=== PATIENT | female | born 1985 | race Caucasian/White ===

== ENCOUNTER 2016-09-23 23:19 | Outpatient (CLI) | payer BC ==
[2016-09-24 00:04] LABS: APPEARANCE,URINE SLIGHTLY-CLOUDY; BILIRUBIN,URINE NEGATIVE (NEGATIVE); GLUCOSE, URINE 50 mg/dL (NEGATIVE); KETONES,URINE NEGATIVE (NEGATIVE); LEUKOCYTE ESTERASE,URINE NEGATIVE (NEGATIVE); NITRITE,URINE NEGATIVE (NEGATIVE); PROTEIN,URINE NEGATIVE (NEGATIVE); URINE SPECIFIC GRAVITY 1.013; UROBILINOGEN,URINE NEGATIVE mg/dL (<2.0)
[2016-09-24 00:32] LABS: URINE BARBITURATES SCREEN NEGATIVE; URINE METHADONE SCREEN NEGATIVE; URINE OPIATES LOW NEGATIVE; URINE PHENCYCLIDINE SCREEN NEGATIVE
[2016-09-24] MEDS ORDERED: HYDROXYZINE PAMOATE 50 MG CAPSULE ONE (02:09)
[2016-09-24] MEDS ORDERED: HYDROXYZINE PAMOATE 50 MG CAPSULE PO ONE (02:15)
--- NOTE | 2016-09-24 02:19 | Non Stress Test Report ---
Non Stress Test Datetime Report Generated by CPN: 09/24/2016 02:18 DEMOGRAPHIC EGA NST: 39.0 INDICATION Indication for Study: Other Indication for Study (NST) Other: labor check URINE RESULTS Urine Protein, NST: Negative Urine Ketones - NST: Negative Urine Glucose - NST: Negative Urine Blood - NST: Negative MONITORING Monitor Explained: Monitor Explained; Test Explained; Patient Verbalized Understanding Time on Monitor: 09/23/2016 23:41 Time off Monitor: 09/24/2016 00:43 NST Duration: 62 NST INTERVENTIONS NST Interventions: PO Hydration; Other NST Interventions Other: popsicle Physician Notified NST: Dr. rose BABY A: [id number] BABY A Movement : Present Contraction Frequency : 2.5-5 FHR Baseline : 135 Accelerations : 15X15 Decelerations : None Variability : Moderate 6-25bpm NST Review: Meets Criteria for Reactive NST NST Review and Verified By : Kimberli Mulligan RN NST Results: Reactive NST REPORT Report Trigger: Send Report
== END 2016-09-24 02:12 | disposition home or self-care (01) ==
LOC: LC 23:19
PROVIDERS: ATTEND Obstetrics & Gynecology
PROC: 4A0HXCZ Measurement of Products of Conception, Cardiac Rate, External Approach (ICD-10-PCS; principal; 2016-09-24)
DX: Z34.83 Encounter for supervision of other normal pregnancy, third trimester (principal); Z3A.39 39 weeks gestation of pregnancy
CPT/HCPCS: 59025; 80307; 81005

== ENCOUNTER 2016-09-29 07:17 | Inpatient (IN) | payer BC, OTHER ==
[2016-09-29] MEDS ORDERED: RINGERS SOLUTION,LACTATED 300 ML IV ONE (07:34)
[2016-09-29] MEDS ORDERED: RINGERS SOLUTION,LACTATED 1,000 ML IV PRN (07:34)
[2016-09-29] MEDS ORDERED: OXYTOCIN/NORMAL SALINE 1,000 ML IV PRN (07:34)
[2016-09-29 08:07] LABS: ABSOLUTE EOSINOPHILS # (AUTO) 0.1 10^3/uL (0.0-0.6); ABSOLUTE LYMPHOCYTES (AUTO) 1.3 10^3/uL (0.5-4.7); ABSOLUTE MONOCYTES (AUTO) 0.5 10^3/uL (0.1-1.4); ABSOLUTE NEUT (AUTO) 5.9 10^3/uL (1.7-8.2); BASOPHILS % (AUTO) 0.4 % (0-2); EOSINOPHILS % (AUTO) 1.3 % (0-6); HEMATOCRIT 35.1 % (36.0-47.0); HGB HCT DIFFERENCE 0.9; MEAN CORPUSCULAR HEMOGLOBIN 29.2 pg (27.0-33.4); MEAN CORPUSCULAR HGB CONC 34.1 g/dL (32.0-36.0); MEAN CORPUSCULAR VOLUME 86 fl (80-97); MONOCYTES % (AUTO) 6.5 % (3-13); RED CELL DISTRIBUTION WIDTH 13.3 % (11.5-14.0); SEGMENTED NEUTROPHILS % (AUTO) 74.8 % (42-78); WHITE BLOOD COUNT 7.8 10^3/uL (4.0-10.5)
[2016-09-29 08:16] LABS: ALANINE AMINOTRANSFERASE 24 U/L (9-52); ALBUMIN 3.6 g/dL (3.5-5.0); ALKALINE PHOSPHATASE 121 U/L (38-126); ANION GAP 12 (5-19); ASPARTATE AMINO TRANSFERASE 14 U/L (14-36); BILIRUBIN,DIRECT 0.3 mg/dL (0.0-0.4); BILIRUBIN,TOTAL 0.5 mg/dL (0.2-1.3); BLOOD UREA NITROGEN 8 mg/dL (7-20); CALCIUM 9.2 mg/dL (8.4-10.2); CARBON DIOXIDE 20 mmol/L (22-30); CHLORIDE 104 mmol/L (98-107); CREATININE RESULT 0.56 mg/dL (0.52-1.25); GLUCOSE 97 mg/dL (75-110); LDH 479 U/L (313-618); POTASSIUM 4.2 mmol/L (3.6-5.0); SODIUM 136.4 mmol/L (137-145); TOTAL PROTEIN 6.6 g/dL (6.3-8.2)
[2016-09-29] MEDS ORDERED: MISOPROSTOL 0.2 MG TABLET ONE ×2 (08:18→08:19)
[2016-09-29] MEDS ORDERED: OXYTOCIN/NORMAL SALINE 20 UNIT/1,000 ML RTUINJ ONE ×2 (08:18→16:22)
[2016-09-29] MEDS ORDERED: METHYLERGONOVINE MALEATE INJ/PF 0.2 MG/1 ML AMPULE ONE (08:18)
[2016-09-29] MEDS ORDERED: OXYTOCIN 10 UNIT/ML VIAL ONE (08:18)
[2016-09-29] MEDS ORDERED: LIDOCAINE 1% INJ-PF (10 MG/ML) 30 ML SDV ONE (08:18)
[2016-09-29 09:25] LABS: APPEARANCE,URINE SLIGHTLY-CLOUDY; BILIRUBIN,URINE NEGATIVE (NEGATIVE); GLUCOSE, URINE 50 mg/dL (NEGATIVE); KETONES,URINE NEGATIVE (NEGATIVE); LEUKOCYTE ESTERASE,URINE NEGATIVE (NEGATIVE); NITRITE,URINE NEGATIVE (NEGATIVE); PROTEIN,URINE NEGATIVE (NEGATIVE); URINE SPECIFIC GRAVITY 1.005; UROBILINOGEN,URINE NEGATIVE mg/dL (<2.0)
[2016-09-29 09:44] LABS: URINE BARBITURATES SCREEN NEGATIVE; URINE METHADONE SCREEN NEGATIVE; URINE OPIATES LOW NEGATIVE; URINE PHENCYCLIDINE SCREEN NEGATIVE
--- NOTE | 2016-09-29 15:01 | L&D Progress Notes ---
PROGRESS NOTES Datetime Report Generated by CPN: 09/29/2016 15:01 PROGRESS NOTE Impression: Normal Progression of Labor Procedures: Artificial ROM; Sterile Vag Exam Plan: Continue Present Management; Induction Informed Consent Obtained: Vaginal Delivery Vital Signs : Reviewed; Within Normal Limits Comment: Pt coping well with ctx Continue pitocin AROM, clear Anticipate pain mgmt prn VAGINAL EXAM Dilatation: 5 Dilatation: 1 Effacement: 80 Station: -2 Station: -4 Contractions: every 2 min Contractions: rare MEMBRANES Membranes: Ruptured Membranes: Intact Amniotic Fluid Color: Clear FETUS A FHR - Baseline: 145 Monitoring: External US Variability: Moderate 6-25bpm Accelerations: 15X15 Decelerations: None FHR Category: Category I Estimated Weight (gm): 3800 Presentation: Vertex SIGNATURE SIGNATURE: [id number];[id number] SIGNATURE: [id number] Assignment: Barbara Car MD Signature: with User ID: [email or web address] : with User ID: [email or web address]
[2016-09-29] MEDS ORDERED: DIPH/PERTUSS(ACELL)/TETANUS VAC/PF 0.5 ML SYR (>=10YO) IM PRN (17:43)
[2016-09-29] MEDS ORDERED: ACETAMINOPHEN WITH CODEINE #3 TABLET PO PRN ×2 (17:43)
[2016-09-29] MEDS ORDERED: MEASLES,MUMPS&RUBELLA VACC/PF 0.5 ML VIAL SUBCUT PRN (17:43)
[2016-09-29] MEDS ORDERED: ZOLPIDEM TARTRATE 5 MG TABLET PO PRN (17:43)
[2016-09-29] MEDS ORDERED: DIBUCAINE 1% OINTMENT 28 GM TP PRN (17:43)
[2016-09-29] MEDS ORDERED: BENZOCAINE/MENTHOL AEROSOL SPRAY 56 ML TOP PRN (17:43)
--- NOTE | 2016-09-29 18:33 | Admission Physical ---
Datetime Report Generated by CPN: 09/29/2016 18:32 CURRENT ADMISSION Chief Complaint: Scheduled Induction of Labor Indication for Induction: Gestational HTN Admit Plan: Admit to Unit; Initiate Labor Protocol ALLERGIES Medication Allergies: No Medication Allergies: No Known Drug Allergies (09/29/2016) Medication Allergies: No Known Drug Allergies (12/07/2014) Latex: No Latex Allergies Food Allergies: NONE Environmental Allergies: NONE OBSTETRICAL HISTORY EDC: 09/30/2016 00:00 : 8 Para: 7 Term: 7 : 0 SAB: 0 IAB: 0 Ectopic: 0 Livin Cesareans: 0 VBACs: 0 Multiple Births: 0 Gestational Diabetes: No Rh Sensitization: No Incompetent Cervix: No NINA: No Infertility: No ART Treatment: No Uterine Anomaly: No IUGR: No Hx Previous C/S: No Macrosomia: No Hx Loss/Stillborn: No PIH: Yes Hx : No Placenta Previa/Abruption: No Depression/PP Depression: No PTL/PROM: No Post Hemorrhage: No Current Procedures: Ultrasound; NST Obstetrical History Comments: G1: 2005 39.6 weeks female 8 lbs 2 oz G2: 2006 40.1 weeks male 8 lbs 9 oz G3: 2007 39 weeks female 8 lbs 1 oz G4: 2009 41 weeks 8 lbs 1 oz G5: 2010 40.5 weeks male 8 lbs 5 oz G6: 2012 39.2 weeks female 7 lbs 5 oz- precip home delivery G7: 2014 41.2 weeks 8 lbs 0 oz male 8 lbs 0 oz G8: 2016 current ; GHTN- IOL SEE RECORDS Alcohol: No Marijuana : No Cocaine: No Other Illicit Drugs: No Cigarettes: Never Smoker. [id number] MEDICAL HISTORY Diabetes: No Blood Transfusion: No Pulmonary Disease (Asthma, TB): No Breast Disease: No Hypertension: No Water Valve Repairer Surgery: No Heart Disease: No Hosp/Surgery: Yes Autoimmune Disorder: No Anesthetic Complications: No Kidney Disease: No Abnormal Pap Smear: No Neuro/Epilepsy: No Psychiatric Disorders: No Other Medical Diseases: No Hepatitis/Liver Disease: No Significant Family History: No Varicosities/Phlebitis: No Trauma/Violence : No Thyroid Dysfunction: No Medical History Comments: CHILDBIRTH, [place] [facility]- 2009; RENAL URETER REVISION @ 9 MO OLD obesity INFECTIOUS HISTORY Gonorrhea: No Genital Herpes: No Chlamydia: No Tuberculosis: No Syphilis: No Hepatitis: No HIV/AIDS Exposure: No Rash or Viral Illness: No HPV: No PHYSICAL EXAM General: Normal HEENT: Normal Neurologic: Normal Thyroid: Deferred Heart: Normal Lungs: Normal Breast: Normal Back: Normal Abdomen: Normal Genitourinary Exam: Normal Extremities: Normal DTRs: Normal Pelvic Type: Adequate Physical Exam Comments: pelvis proven to 8lbs 9oz Vital Signs: Reviewed VAGINAL EXAM Dilatation: 5 Dilatation: 1 Effacement: 80 Station: -2 Station: -4 Contraction Comments: every 2 min Contraction Comments: rare MEMBRANES Membranes: Ruptured Membranes: Intact Amniotic Fluid Color: Clear FETUS A EGA: 39.6 Monitoring: External US FHR- Baseline: 145 Variability: Moderate 6-25bpm Accelerations: 15X15 Decelerations: None FHR Category: Category I Estimated Weight (gm): 3800 Presentation: Vertex Admit Comment: Induction of labor for gestational htn and hx of precipitious delivery [place], hemmorhage precatuions GBS negative See record for complete hx. Pitocin per protocol. PLANS FOR LABOR AND DELIVERY Labor and Delivery: None Other Pain Management Plans: UNSURE IF SHE WANTS ANYTHING- WILL NOTIFY RN Feeding Preference: Breast Benefit of Breast Feed Discussed: Yes Circumcision: N/A INFORMED CONSENT Informed Consent Obtained: Vaginal Delivery Assignment: Barbara Car MD Signature: with User ID: [email or web address] : with User ID: [email or web address]
[2016-09-29] MEDS: FERROUS SULFATE 325 MG TABLET PO SCH (20:01)
[2016-09-29] MEDS: DOCUSATE SODIUM 100 MG CAPSULE PO SCH (20:01)
[2016-09-29] MEDS: IBUPROFEN 800 MG TABLET PO SCH (21:15)
[2016-09-30] MEDS: IBUPROFEN 800 MG TABLET PO SCH ×3 (05:43→22:07)
[2016-09-30 06:41] LABS: HEMATOCRIT 30.4 % (36.0-47.0); HEMOGLOBIN 10.5 g/dL (12.0-15.5); HGB HCT DIFFERENCE 1.1; MEAN CORPUSCULAR HEMOGLOBIN 29.6 pg (27.0-33.4); MEAN CORPUSCULAR HGB CONC 34.3 g/dL (32.0-36.0); MEAN CORPUSCULAR VOLUME 86 fl (80-97); RED BLOOD COUNT 3.53 10^6/uL (3.72-5.28); RED CELL DISTRIBUTION WIDTH 13.3 % (11.5-14.0); WHITE BLOOD COUNT 8.3 10^3/uL (4.0-10.5)
[2016-09-30] MEDS: PRENATAL VITAMIN W-O CA NO5/FE FUMARATE/FA CAPSULE PO SCH (09:32)
[2016-09-30] MEDS: FERROUS SULFATE 325 MG TABLET PO SCH ×2 (09:33→17:08)
[2016-09-30] MEDS: SENNOSIDES/DOCUSATE 8.6-50 MG 1 EACH TABLET PO SCH (09:33)
--- NOTE | 2016-09-30 09:34 | PDOC PROGRESS REPORT ---
Subjective-OB Subjective: Post Delivery Day: 1 31 year old. Denies any needs at this time, states pain is well controlled, voiding without difficulty, lochia is stable, tolerating diet, bonding well with baby. Physical Exam (OB) Vital Signs: Temp Pulse Resp BP Pulse Ox 98.3 F 104 H 20 145/85 H 96 09/29/16 19:59 09/29/16 19:59 09/29/16 19:59 09/29/16 19:59 09/29/16 19:59 Intake & Output 09/29/16 09/30/16 10/01/16 06:59 06:59 06:59 Weight 125.85 kg - Lochia Lochia Amount: Small 10-25 ml Lochia Color: Rubra/Red - Abdomen Description: Soft, Round Hernia Present: No Fundal Description: Firm, Boggy Fundal Height: u/u - u/2 Objective-Diagnostic Laboratory: 09/30/16 06:13 09/29/16 07:48 09/30/16 06:13 WBC 8.3 RBC 3.53 L Hgb 10.5 L Hct 30.4 L MCV 86 MCH 29.6 MCHC 34.3 RDW 13.3 Plt Count 247 Assessment and Plan(PN) - Assessment and Plan (1) Delivery normal Is this a current diagnosis for this admission?: YesPlan: routine pp care - Time Spent with Patient Time with patient: Less than 15 minutes Critical Time spent with patient: Less than 15 minutes Medications reviewed and adjusted accordingly: Yes - Disposition Anticipated Discharge: Home Within: within 24 hours
[2016-09-30] MEDS: DOCUSATE SODIUM 100 MG CAPSULE PO SCH ×2 (09:48→17:08)
[2016-10-01] MEDS: IBUPROFEN 800 MG TABLET PO SCH (05:16)
[2016-10-01 08:40] VITALS: BP 123/79
[2016-10-01] MEDS: SENNOSIDES/DOCUSATE 8.6-50 MG 1 EACH TABLET PO SCH (09:29)
[2016-10-01] MEDS: PRENATAL VITAMIN W-O CA NO5/FE FUMARATE/FA CAPSULE PO SCH (09:29)
[2016-10-01] MEDS: FERROUS SULFATE 325 MG TABLET PO SCH (09:29)
[2016-10-01] MEDS: DOCUSATE SODIUM 100 MG CAPSULE PO SCH (09:29)
--- NOTE | 2016-10-01 09:43 | PDOC DISCHARGE SUMMARY ---
Final Diagnosis Discharge Date: 10/01/16 - Final Diagnosis (1) Delivery normal Is this a current diagnosis for this admission?: Yes (2) Acute blood loss anemia Is this a current diagnosis for this admission?: Yes (3) Gestational [-induced] hypertension without significant proteinuria , third trimester Is this a current diagnosis for this admission?: Yes Discharge Data - Discharge Medication Home Medications: Pnv with Ca,No.72/Iron/FA [Pnv Plus Multivit Tab] 1 tab PO DAILY Docusate Sodium [Colace 100 mg Capsule] 100 mg PO BID #60 capsule 10/01/16 Ferrous Sulfate [Feosol 325 mg Tablet] 325 mg PO BID #60 tablet 10/01/16 Ibuprofen [Motrin 800 mg Tablet] 800 mg PO Q8 #60 tablet 10/01/16 Gestational Age: 39+ Reason(s) for Admission: Induction of Labor Intrapartum Procedure(s): Spontaneous Vaginal Delivery - Data Baby 1 Female at 1 minute: 9 at 5 minutes: 9 Home with Mother: Yes Complications: No - Diagnosis Test Laboratory: Temp Pulse Resp BP Pulse Ox 97.6 F 88 16 123/79 100 10/01/16 08:45 10/01/16 08:45 10/01/16 08:45 10/01/16 07:56 10/01/16 08:45 09/29/16 09/29/16 09/30/16 07:30 07:48 06:13 RBC 4.10 3.53 L Hgb 12.0 10.5 L Hct 35.1 L 30.4 L Urine Opiates Screen NEGATIVE - Discharge information/Instructions Discharge Activity: Activity As Tolerated, Pelvic Rest, No tub bath Discharge Diet: Regular Disposition: HOME, SELF-CARE Follow up with: [facility] in: 1, Weeks
--- NOTE | 2016-10-02 18:18 | Delivery Summary ---
Del Sum A-C Datetime Report Generated by CPN: 10/02/2016 18:18 DELIVERY PERSONNEL DELIVERY PERSONNEL: [id number];[id number];[id number] Delivery Doctor:: Luzma Mitchell CNM Labor and Delivery Nurse:: Thania Palacio RN Labor and Delivery Nurse:: Char Adamson RN Copy Lathe Operator/CHIMNEY REPAIRER: Ella Rosanna, DOPE WEIGH OPERATOR MATERNAL INFORMATION Delivery Anesthesia: None Medications After Delivery: Pitocin Bolus-Please Comment; Pitocin Drip 20 Units/1000ml NSS Estimated Blood Loss (ml): 200 Maternal Complications: None Provider Comments: of viable female over intact perineum, head, shoulders, and body, loose nuchal X1, easily reduced. Infant with spontaneous cry and respirations, to maternal abdomen, cord clamped X2 and infant cut free by pt, after 2 min delay. Spontaneous delivery of intact placenta via campos mechanism, appears intact, 3 VC. Vagina and perineum inspected, no lacerations noted, hemostasis acheived with external fundal massage and IV pitocin. Mother and infant in stable condition, routine pp care. LABOR SUMMARY EDC: 09/30/2016 00:00 No. Babies in Womb: 1 Attempted: No Labor Anesthesia: None LABOR INFORMATION Reason for Induction: Gestational Hypertension Onset of Labor: 09/29/2016 15:00 Complete Dilatation: 09/29/2016 15:50 Oxytocin: Induction Group B Beta Strep: negative Antibiotics # of Doses: 0 Steroids Given: None Reason Steroids Not Administered: Not Applicable MEMBRANES Membranes Rupture Method: Artificial Rupture of Membranes: 09/29/2016 15:00 Length of Rupture (hr): 0.88 Amniotic Fluid Color: Clear Amniotic Fluid Amount: Large Amniotic Fluid Odor: None STAGES OF LABOR Stage 1 hr: 0 Stage 1 min: 50 Stage 2 hr: 0 Stage 2 min: 3 Stage 3 hr: 0 Stage 3 min: 3 Total Time in Labor hr: 0 Total Time in Labor min: 56 VAGINAL DELIVERY Episiotomy: None Laceration Extension: N/A Laceration Type: None Laceration Repair: Not Applicable Laceration Repair Note: n/a Sponge Count Correct: N/A Sharps Count Correct: N/A CSECTION DELIVERY CSection Incision: N/A BABY A INFORMATION Delivery Date/Time: 09/29/2016 15:53 Method of Delivery: Vaginal Born in Route : No : N/A Forceps: N/A Vacuum Extraction: N/A Shoulder Dystocia : No PRESENTATION/POSITION BABY A Presentation: Cephalic Cephalic Presentation: Vertex Vertex Position: Left Occipital Anterior Breech Presentation: N/A PLACENTA INFORMATION BABY A Placenta Delivery Time : 09/29/2016 15:56 Placenta Method of Delivery: Spontaneous Placenta Status: Delivered SCORES BABY A Heart Rate 1 min: >100 bpm Resp Effort 1 min: Good Cry Reflex Irritability 1 min: Cough or Sneeze or Pulls Away Muscle Tone 1 min: Active Motion Color 1 min: Body [place], Extremities Blue Resuscitation Effort 1 min: Tactile Stimulation SCORE 1 MIN: 9 Heart Rate 5 min: >100 bpm Resp Effort 5 min: Good Cry Reflex Irritability 5 min: Cough or Sneeze or Pulls Away Muscle Tone 5 min: Active Motion Color 5 min: Body [place], Extremities Blue Resuscitation Effort 5 min: Tactile Stimulation SCORE 5 MIN: 9 INFANT INFORMATION BABY A Gestational Age at Delivery: 39.6 Gestational Status: Full Term- 39- 40.6 Weeks Outcome : Liveborn Infant Condition : Stable Infant Sex: Female IDENTIFICATION BABY A Infant Verification Date/Time: 09/29/2016 17:09 ID Band Number: [id number] Mother's Name Verified: Yes RN Verifying Infant: BL ROULUND, RN Additional Verifying Personnel: D KINDRA, US/CHIMNEY REPAIRER WEIGHT/LENGTH BABY A Birthweight (gm): 3612 Infant Weight (lb): 7 Infant Weight (oz): 15 Length (in): 19.75 Length (cm): 50.17 CORD INFORMATION BABY A No. Cord Vessels: 3 Nuchal Cord : Around Neck x1, Loose Cord Blood Taken: Yes-For Storage (Mom's Blood type +) Suction: None ASSESSMENT BABY A Complications: None Physical Findings at Delivery: Within Normal Limits Infant Respirations: Appears Normal Skin to Skin: Yes Skin to Skin Time (min): 60 Engineering Librarian/ALS Called : No Care By: Ofe ADAMSON RN Transferred To: Remains with Mother BABY B INFORMATION : N/A SIGNATURES Assignment: Barbara Car MD Signature: with User ID: [email or web address] : with User ID: [email or web address]
== END 2016-10-01 11:56 | disposition home or self-care (01) | DRG 775 ==
LOC: LR 07:17 → 2S 18:15
PROVIDERS: ADMIT Obstetrics & Gynecology; ATTEND Obstetrics & Gynecology
PROC: 10E0XZZ Delivery of Products of Conception, External Approach (ICD-10-PCS; principal; 2016-09-29)
PROC: 3E033VJ Introduction of Other Hormone into Peripheral Vein, Percutaneous Approach (ICD-10-PCS; 2016-09-29)
PROC: 4A1HXCZ Monitoring of Products of Conception, Cardiac Rate, External Approach (ICD-10-PCS; 2016-09-29)
DX: O13.4 Gestational [pregnancy-induced] hypertension without significant proteinuria, complicating childbirth (principal); D62 Acute posthemorrhagic anemia; O99.02 Anemia complicating childbirth; O69.81X0 Labor and delivery complicated by cord around neck, without compression, not applicable or unspecified; Z3A.39 39 weeks gestation of pregnancy; Z37.0 Single live birth
CPT/HCPCS: 36415; 80053; 80307; 81005; 83615; 84550; 85025; 85027; 86592; 86850; 86900; 86901; J2210; J2590; J3490

== ENCOUNTER 2018-03-13 14:51 | Outpatient (CLI) | payer BC | END 2018-03-13 15:30 | disposition home or self-care (01) | LOC: LC 14:51 | PROVIDERS: ATTEND Student in an Organized Health Care Education/Training Program | PROC: 4A1HXCZ Monitoring of Products of Conception, Cardiac Rate, External Approach (ICD-10-PCS; principal; 2018-03-13) | DX: O24.419 Gestational diabetes mellitus in pregnancy, unspecified control (principal); Z3A.38 38 weeks gestation of pregnancy | CPT/HCPCS: 59025 ==

== ENCOUNTER 2018-03-21 06:40 | Inpatient (IN) | payer BC ==
[2018-03-21] MEDS ORDERED: OXYTOCIN/NORMAL SALINE 20 UNIT/1,000 ML RTUINJ IV PRN ×2 (06:51→13:35)
[2018-03-21] MEDS ORDERED: RINGERS SOLUTION,LACTATED 300 ML IV ONE (06:51)
[2018-03-21] MEDS ORDERED: RINGERS SOLUTION,LACTATED 1,000 ML IV PRN (06:51)
[2018-03-21 07:29] LABS: ABSOLUTE LYMPHOCYTES (AUTO) 1.1 10^3/uL (0.5-4.7); ABSOLUTE MONOCYTES (AUTO) 0.5 10^3/uL (0.1-1.4); ABSOLUTE NEUT (AUTO) 5.3 10^3/uL (1.7-8.2); BASOPHILS % (AUTO) 0.6 % (0-2); EOSINOPHILS % (AUTO) 0.6 % (0-6); HEMATOCRIT 33.4 % (36.0-47.0); HEMOGLOBIN 11.7 g/dL (12.0-15.5); LYMPHOCYTES % (AUTO) 16.2 % (13-45); MEAN CORPUSCULAR HEMOGLOBIN 29.2 pg (27.0-33.4); MEAN CORPUSCULAR HGB CONC 35.1 g/dL (32.0-36.0); MEAN CORPUSCULAR VOLUME 83 fl (80-97); MONOCYTES % (AUTO) 6.7 % (3-13); PLATELET COUNT 282 10^3/uL (150-450); RED BLOOD COUNT 4.02 10^6/uL (3.72-5.28); RED CELL DISTRIBUTION WIDTH 13.3 % (11.5-14.0); SEGMENTED NEUTROPHILS % (AUTO) 75.9 % (42-78); TOTAL CELLS COUNTED % (AUTO) 100 %
--- NOTE | 2018-03-21 07:29 | Admission Physical ---
Datetime Report Generated by CPN: 03/21/2018 07:29 CURRENT ADMISSION Chief Complaint: Scheduled Induction of Labor Indication for Induction- Other: h/o fast labor Admit Impression : Term, Intrauterine Admit Plan: Admit to Unit; Initiate Labor Induction Protocol ALLERGIES Medication Allergies: No Medication Allergies: No Known Drug Allergies (03/21/2018) Latex: No Latex Allergies OBSTETRICAL HISTORY EDC: 03/22/2018 00:00 : 9 Para: 8 Term: 8 : 0 SAB: 0 IAB: 0 Ectopic: 0 Livin Cesareans: 0 VBACs: 0 Multiple Births: 0 Gestational Diabetes: Yes Rh Sensitization: No Incompetent Cervix: No NINA: No Infertility: No ART Treatment: No Uterine Anomaly: No IUGR: No Hx Previous C/S: No Macrosomia: No Hx Loss/Stillborn: No PIH: No Hx : No Placenta Previa/Abruption: No Depression/PP Depression: No PTL/PROM: No Post Hemorrhage: No Current Procedures: Ultrasound; NST Obstetrical History Comments: G1 NVD G2 NVD G3 NVD G4 NVD G5 NVD G6 NVD G7 Vaginal delivery in toilet at home G8 NVD G9- current GDM on metformin SEE RECORDS Alcohol: No Marijuana : No Cocaine: No Other Illicit Drugs: No Cigarettes: Never Smoker. [id number] MEDICAL HISTORY Diabetes: Yes Diabetes Type: Gestational Diabetes Blood Transfusion: No Pulmonary Disease (Asthma, TB): No Breast Disease: No Hypertension: No Medical Intern Surgery: No Heart Disease: No Hosp/Surgery: Yes Autoimmune Disorder: No Anesthetic Complications: No Kidney Disease: No Abnormal Pap Smear: No Neuro/Epilepsy: No Psychiatric Disorders: No Other Medical Diseases: No Hepatitis/Liver Disease: No Significant Family History: No Varicosities/Phlebitis: No Trauma/Violence : No Thyroid Dysfunction: No Medical History Comments: Hospitalization with childbirth. [place] 2009 INFECTIOUS HISTORY Gonorrhea: No Genital Herpes: No Chlamydia: No Tuberculosis: No Syphilis: No Hepatitis: No HIV/AIDS Exposure: No Rash or Viral Illness: No HPV: No PHYSICAL EXAM General: Normal HEENT: Normal Neurologic: Normal Thyroid: Normal Heart: Normal Lungs: Normal Breast: Normal Back: Normal Abdomen: Normal Genitourinary Exam: Normal Extremities: Normal DTRs: Normal Pelvic Type: Adequate Vital Signs: Reviewed; Within Normal Limits VAGINAL EXAM Contraction Comments: none MEMBRANES Membranes: Intact FETUS A EGA: 39.6 Monitoring: External US FHR- Baseline: 120s Accelerations: 15X15 Decelerations: None FHR Category: Category I Admit Comment: h/o fast labor PLANS FOR LABOR AND DELIVERY Labor and Delivery: None Pain Management: Natural Feeding Preference: Breast Benefit of Breast Feed Discussed: Yes Circumcision: N/A INFORMED CONSENT Signature: with User ID: [email or web address]
[2018-03-21 07:41] LABS: APPEARANCE,URINE CLOUDY; BILIRUBIN,URINE NEGATIVE (NEGATIVE); GLUCOSE, URINE NEGATIVE (NEGATIVE); KETONES,URINE NEGATIVE (NEGATIVE); LEUKOCYTE ESTERASE,URINE TRACE (NEGATIVE); NITRITE,URINE NEGATIVE (NEGATIVE); PROTEIN,URINE NEGATIVE (NEGATIVE); URINE SPECIFIC GRAVITY 1.012; UROBILINOGEN,URINE NEGATIVE mg/dL (<2.0)
[2018-03-21 07:45] LABS: COLOR,URINE YELLOW
[2018-03-21 07:58] LABS: URINE AMPHETAMINES SCREEN NEGATIVE; URINE BARBITURATES SCREEN NEGATIVE; URINE BENZODIAZEPINES SCREEN NEGATIVE; URINE COCAINE SCREEN NEGATIVE; URINE MARIJUANA (THC) SCREEN NEGATIVE; URINE METHADONE SCREEN NEGATIVE; URINE PHENCYCLIDINE SCREEN NEGATIVE
[2018-03-21] MEDS ORDERED: LIDOCAINE 1% INJ-PF (10 MG/ML) 30 ML SDV ONE (08:08)
[2018-03-21] MEDS ORDERED: OXYTOCIN/NORMAL SALINE 20 UNIT/1,000 ML RTUINJ ONE (08:08)
[2018-03-21] MEDS ORDERED: MISOPROSTOL 0.2 MG TABLET ONE (08:08)
--- NOTE | 2018-03-21 10:40 | Warning Signs in Babies ---
VOD Warning Signs Datetime Report Generated by [facility]: 03/21/2018 10:40 VOD#608 -Warning Signs in Babies: Viewed with Parent(s)/Family (03/13/2018 15:12:Glenda Monaco)
[2018-03-21] MEDS ORDERED: NALBUPHINE HCL INJ 10 MG/1 ML AMPULE ONE (11:48)
[2018-03-21] MEDS ORDERED: EPHEDRINE SULFATE INJ 50 MG/1 ML AMPULE ONE (12:27)
[2018-03-21] MEDS ORDERED: FENTANYL/BUPIVACAINE/NS/PF 300 MCG/150 ML RTUINJ EPI ONE (12:28)
[2018-03-21] MEDS ORDERED: BUPIVACAINE HCL 0.5 % INJ/PF 30 ML SDV ONE (12:29)
[2018-03-21] MEDS ORDERED: NALBUPHINE HCL INJ 10 MG/1 ML AMPULE INJ ONE (12:30)
--- NOTE | 2018-03-21 12:31 | L&D Progress Notes ---
PROGRESS NOTES Datetime Report Generated by CPN: 03/21/2018 12:31 PROGRESS NOTE Impression Other: IUP @ [id number] Procedures: Artificial ROM; Sterile Vag Exam Plan: Continue Present Management; Induction Informed Consent Obtained: Vaginal Delivery; Induction of Labor; Risks, Benefits and Alternatives Discussed Vital Signs : Reviewed; Within Normal Limits Vital Signs Comments: some mild range diastolic bps otherwise normal Comment: S: comfortable after nubain but still desires epidural for pain relief O: cervix as stated, vss, pit @ 20mu/min A: IUP@ 39w6d IOL, AROM-large amount of clear fluid with good head descent after AROM, tolerated well P: continue IOL, fluid bolus started for epidural placement, anticipate delivery,reassess as clinically indicated, earlier prn VAGINAL EXAM Dilatation: 6 Effacement: 80 Station: -2 Contractions: 2-4 Contractions: none MEMBRANES Membranes: Ruptured Membranes: Intact Amniotic Fluid Color: Clear FETUS A FHR - Baseline: 145 Monitoring: External US Variability: Moderate 6-25bpm Accelerations: 15X15 Decelerations: None FHR Comments: min variability after nubain : 39.6 SIGNATURE SIGNATURE: ,[id number];,[id number];,[id number] SIGNATURE: ,[id number];,[id number] SIGNATURE: ,[id number] Assignment: Chadwick Prabhakar MD Signature: with User ID: [email or web address] : with User ID: [email or web address]
[2018-03-21] MEDS ORDERED: ACETAMINOPHEN 325 MG TABLET PO PRN (13:35)
[2018-03-21] MEDS ORDERED: PROMETHAZINE HCL INJ 25 MG/1 ML VIAL IV PRN (13:35)
[2018-03-21] MEDS ORDERED: GLYCERIN/WITCH HAZEL LEAF 1 EACH MED..PAD TP PRN (13:35)
[2018-03-21] MEDS ORDERED: PROMETHAZINE HCL 25 MG TABLET PO PRN (13:35)
[2018-03-21] MEDS ORDERED: MAGNESIUM HYDROXIDE SUSP 30 ML UDCUP PO PRN (13:35)
[2018-03-21] MEDS ORDERED: NA PHOS,M-B/NA PHOS,DI-BA (ADULT) 133 ML ENEMA PR PRN (13:35)
[2018-03-21] MEDS ORDERED: DIBUCAINE 1% OINTMENT 28 GM TP PRN (13:35)
[2018-03-21] MEDS ORDERED: DIPH/PERTUSS(ACELL)/TETANUS VAC/PF 0.5 ML SYR (>=10YO) IM PRN (13:35)
[2018-03-21] MEDS ORDERED: PSEUDOEPHEDRINE HCL 30 MG TABLET PO PRN (13:35)
[2018-03-21] MEDS ORDERED: DIPHENHYDRAMINE HCL 25 MG CAPSULE PO PRN (13:35)
[2018-03-21] MEDS ORDERED: ACETAMINOPHEN WITH CODEINE #3 TABLET PO PRN ×2 (13:35)
[2018-03-21] MEDS ORDERED: MEASLES,MUMPS&RUBELLA VACC/PF 0.5 ML VIAL SUBCUT PRN (13:35)
[2018-03-21] MEDS ORDERED: PROMETHAZINE HCL 25 MG SUPP.RECT PR PRN (13:35)
[2018-03-21] MEDS ORDERED: BENZOCAINE/MENTHOL AEROSOL SPRAY 56 ML TOP PRN (13:35)
[2018-03-21] MEDS ORDERED: MISOPROSTOL 0.2 MG TABLET PR ONE (13:46)
[2018-03-21] MEDS ORDERED: IBUPROFEN 800 MG TABLET ONE (14:54)
[2018-03-21] MEDS: IBUPROFEN 800 MG TABLET PO SCH ×2 (14:56→21:48)
--- NOTE | 2018-03-21 15:50 | Delivery Summary ---
Del Sum A-C Datetime Report Generated by CPN: 03/21/2018 15:49 DELIVERY PERSONNEL DELIVERY PERSONNEL: [id number] Delivery Doctor:: Maria Elena Hudson CNM Nurse Agriculture Research Director Certified:: Maria Elena Hudson CNM Anesthesiologist:: Wallace Gregory MD Labor and Delivery Nurse:: DENI Pacheco Labor and Delivery Nurse:: Glenda Monaco RN Student Observers:: Gabbi Perez Tech/TIGRE: Jacey Cutler CNA II MATERNAL INFORMATION Delivery Anesthesia: Epidural Medications During Delivery: Nubain 10mg IV Medications After Delivery: Pitocin Bolus-Please Comment; Cytotec 1000mcg Per Rectum/Vagina Maternal Complications: None Provider Comments: pt progressed to c/c/+2 with urge to push, began pushing and with that contraction went on to deliver a Viable female . Baby with spontaneous vigorous respiratory effort and cry at , placed skin to skin with mom and cord allowed to stop pulsating then clamped x2 and cut by pt (3vc noted). Placenta delivered spontaneously intact with central insertion, fundus firm @ u and minimal bleeding but 1000mcg placed rectally for prophylaxis. Midline abrasion noted as stated and hemostatic, no vaginal or perineal lacerations. Pt and baby remain skin to skin,stable and bonding at this time LABOR SUMMARY EDC: 03/22/2018 00:00 No. Babies in Womb: 1 Attempted: No Labor Anesthesia: Epidural LABOR INFORMATION Reason for Induction: Other Reason for Induction- Other: maternal diabetes, h/o fast labor Onset of Labor: 03/21/2018 12:16 Complete Dilatation: 03/21/2018 13:03 Oxytocin: Induction Group B Beta Strep: Negative Antibiotics # of Doses: na Antibiotics Time of Last Dose: na Name of Antibiotic Given: na Steroids Given: None Reason Steroids Not Administered: Not Applicable MEMBRANES Membranes Rupture Method: Artificial Rupture of Membranes: 03/21/2018 12:15 Length of Rupture (hr): 0.87 Amniotic Fluid Color: Clear Amniotic Fluid Amount: Large Amniotic Fluid Odor: None STAGES OF LABOR Stage 1 hr: 0 Stage 1 min: 47 Stage 2 hr: 0 Stage 2 min: 4 Stage 3 hr: 0 Stage 3 min: 6 Total Time in Labor hr: 0 Total Time in Labor min: 57 VAGINAL DELIVERY Episiotomy: None Laceration #1: None Laceration Extension #1: N/A Other Laceration: Mid line abrasion-hemostatic Laceration Repair: Not Applicable Sponge Count Correct: N/A Sharps Count Correct: N/A CSECTION DELIVERY Primary Indication: N/A Secondary Indication: N/A CSection Incidence: N/A Labor: N/A Elective: N/A CSection Incision: N/A BABY A INFORMATION Infant Delivery Date/Time: 03/21/2018 13:07 Method of Delivery: Vaginal Born in Route : No : N/A Forceps: N/A Vacuum Extraction: N/A Shoulder Dystocia : No PRESENTATION/POSITION BABY A Presentation: Cephalic Cephalic Presentation: Vertex Vertex Position: Right Occipital Anterior Breech Presentation: N/A PLACENTA INFORMATION BABY A Placenta Delivery Time : 03/21/2018 13:13 Placenta Method of Delivery: Spontaneous Placenta Status: Delivered SCORES BABY A Heart Rate 1 min: >100 bpm Resp Effort 1 min: Good Cry Reflex Irritability 1 min: Cough or Sneeze or Pulls Away Muscle Tone 1 min: Active Motion Color 1 min: Blue/Pale Resuscitation Effort 1 min: Tactile Stimulation SCORE 1 MIN: 8 Heart Rate 5 min: >100 bpm Resp Effort 5 min: Good Cry Reflex Irritability 5 min: Cough or Sneeze or Pulls Away Muscle Tone 5 min: Active Motion Color 5 min: Body [place], Extremities Blue Resuscitation Effort 5 min: Tactile Stimulation SCORE 5 MIN: 9 INFANT INFORMATION BABY A Gestational Age at Delivery: 39.6 Gestational Status: Full Term- 39- 40.6 Weeks Outcome : Liveborn Condition : Stable Sex: Female IDENTIFICATION BABY A Verification Date/Time: 03/21/2018 13:27 ID Band Number: [id number] Mother's Name Verified: Yes Infant RN Verifying Infant: SVance, RN Additional Verifying Personnel: S.Camp, RN WEIGHT/LENGTH BABY A Infant Birthweight (gm): 3680 Infant Weight (lb): 8 Infant Weight (oz): 2 Length (in): 19.50 Length (cm): 49.53 CORD INFORMATION BABY A No. Cord Vessels: 3 Nuchal Cord : N/A Cord Blood Taken: Yes-For Storage (Mom's Blood type +) Suction: Mouth; Nose ASSESSMENT BABY A Infant Complications: None Physical Findings at Delivery: Within Normal Limits Respirations: Appears Normal Skin to Skin: Yes Skin to Skin Time (min): 60 Audiovisual Equipment Operator/ALS Called : No Care By: Roberto Urias RN Transferred To: Remains with Mother BABY B INFORMATION : N/A SIGNATURES Assignment: Chadwick Prabhakar MD Signature: with User ID: [email or web address] : with User ID: [email or web address]
[2018-03-21] MEDS: DOCUSATE SODIUM 100 MG CAPSULE PO SCH (17:41)
[2018-03-21] MEDS: FERROUS SULFATE 325 MG TABLET PO SCH (17:41)
[2018-03-22] MEDS: FAMOTIDINE 20 MG TABLET PO SCH ×3 (02:22→21:35)
[2018-03-22] MEDS: IBUPROFEN 800 MG TABLET PO SCH ×3 (05:11→21:32)
[2018-03-22 06:32] LABS: HEMATOCRIT 32.1 % (36.0-47.0); HEMOGLOBIN 11.1 g/dL (12.0-15.5); MEAN CORPUSCULAR HEMOGLOBIN 29.2 pg (27.0-33.4); MEAN CORPUSCULAR HGB CONC 34.6 g/dL (32.0-36.0); MEAN CORPUSCULAR VOLUME 85 fl (80-97); PLATELET COUNT 226 10^3/uL (150-450); RED CELL DISTRIBUTION WIDTH 13.3 % (11.5-14.0); WHITE BLOOD COUNT 6.8 10^3/uL (4.0-10.5)
[2018-03-22] MEDS: PRENATAL VITAMIN W DHA CAPSULE PO SCH (10:15)
[2018-03-22] MEDS: FERROUS SULFATE 325 MG TABLET PO SCH ×2 (10:15→17:45)
[2018-03-22] MEDS: DOCUSATE SODIUM 100 MG CAPSULE PO SCH ×2 (10:15→17:45)
[2018-03-22] MEDS: SENNOSIDES/DOCUSATE 8.6-50 MG 1 EACH TABLET PO SCH (10:15)
--- NOTE | 2018-03-22 11:09 | PDOC PROGRESS REPORT ---
Subjective-OB Progress Note for:: 03/22/18 Subjective: Pt doing well, no concerns. She reports light bleeding, reg diet and voiding without difficulty. Physical Exam (OB) Vital Signs: Temp Pulse Resp BP Pulse Ox 98.5 F 76 18 115/63 97 03/22/18 07:32 03/22/18 07:32 03/22/18 07:32 03/22/18 07:32 03/22/18 07:32 Intake & Output 03/21/18 03/22/18 03/23/18 06:59 06:59 06:59 Weight 126.8 kg - PIH/Pre-Eclampsia Clonus: Negative Headache: Absent Epigastric Pain: No Visual Changes: No - Lochia Lochia Amount: Scant < 10 ml Lochia Color: Rubra/Red - Abdomen Description: Soft, Round Hernia Present: No Fundal Description: Firm, Midline Fundal Height: u/u - u/2 Objective-Diagnostic Laboratory: 03/22/18 06:27 03/22/18 06:27 WBC 6.8 RBC 3.80 Hgb 11.1 L Hct 32.1 L MCV 85 MCH 29.2 MCHC 34.6 RDW 13.3 Plt Count 226 Assessment and Plan(PN) - Assessment and Plan (1) Delivery normal Is this a current diagnosis for this admission?: Yes (2) Grand multipara Is this a current diagnosis for this admission?: Yes - Time Spent with Patient Time with patient: Less than 15 minutes Medications reviewed and adjusted accordingly: Yes - Disposition Anticipated Discharge: Home Within: within 24 hours
[2018-03-23] MEDS: IBUPROFEN 800 MG TABLET PO SCH (06:14)
[2018-03-23 08:23] VITALS: BP 127/78
[2018-03-23] MEDS: PRENATAL VITAMIN W DHA CAPSULE PO SCH (09:44)
[2018-03-23] MEDS: SENNOSIDES/DOCUSATE 8.6-50 MG 1 EACH TABLET PO SCH (09:44)
[2018-03-23] MEDS: FERROUS SULFATE 325 MG TABLET PO SCH (09:44)
[2018-03-23] MEDS: DOCUSATE SODIUM 100 MG CAPSULE PO SCH (09:44)
--- NOTE | 2018-03-23 10:34 | PDOC DISCHARGE SUMMARY ---
Final Diagnosis Discharge Date: 03/23/18 - Final Diagnosis (1) Delivery normal Is this a current diagnosis for this admission?: Yes (2) Grand multipara Is this a current diagnosis for this admission?: Yes Discharge Data - Discharge Medication Home Medications: Pnv,Calcium 72/Iron/Folic Acid [Pnv Plus Multivit Tab] 1 tab PO DAILY 09/29/16 Metformin HCl 500 mg PO DAILY 03/21/18 Reason(s) for Admission: Induction of Labor Procedures: NST Intrapartum Procedure(s): Spontaneous Vaginal Delivery - Diagnosis Test Laboratory: Temp Pulse Resp BP Pulse Ox 98.5 F 76 18 115/63 97 03/22/18 07:32 03/22/18 07:32 03/22/18 07:32 03/22/18 07:32 03/22/18 07:32 03/21/18 03/21/18 03/22/18 06:46 07:12 06:27 RBC 4.02 3.80 Hgb 11.7 L 11.1 L Hct 33.4 L 32.1 L Urine Opiates Screen NEGATIVE - Discharge information/Instructions Discharge Activity: Balance Activity w/Rest, Pelvic Rest Discharge Diet: Regular Disposition: HOME, SELF-CARE Follow up with: [facility] in: 4, Weeks
== END 2018-03-23 13:30 | disposition home or self-care (01) | DRG 807 ==
LOC: LR 06:40 → 2S 16:20
PROVIDERS: ADMIT Obstetrics & Gynecology Gynecology; ATTEND Obstetrics & Gynecology Gynecology
PROC: 10E0XZZ Delivery of Products of Conception, External Approach (ICD-10-PCS; principal; 2018-03-21)
PROC: 10907ZC Drainage of Amniotic Fluid, Therapeutic from Products of Conception, Via Natural or Artificial Opening (ICD-10-PCS; 2018-03-21)
PROC: 3E033VJ Introduction of Other Hormone into Peripheral Vein, Percutaneous Approach (ICD-10-PCS; 2018-03-21)
PROC: 4A1HXCZ Monitoring of Products of Conception, Cardiac Rate, External Approach (ICD-10-PCS; 2018-03-21)
DX: O24.425 Gestational diabetes mellitus in childbirth, controlled by oral hypoglycemic drugs (principal); Z3A.39 39 weeks gestation of pregnancy; Z37.0 Single live birth
CPT/HCPCS: 36415; 80307; 81005; 85025; 85027; 86592; 86850; 86900; 86901; J2300; J2590; J3010; J3490

== ENCOUNTER 2019-03-22 10:21 | Emergency (ER) | payer BC ==
--- NOTE | 2019-03-22 10:39 | ER Document Report ---
ED Medical Screen (RME) - General Chief Complaint: Abdominal Pain Stated Complaint: STOMACH PAIN Time Seen by Provider: 03/22/19 10:35 Primary Care Provider: KARLIE ROGERS MD [Primary Care Provider] - Follow up as needed Mode of Arrival: Ambulatory Notes: 33-year-old female presents to ED for lower right abdominal pain/pelvic pain darted last night worse today. She states it is sharp dull achy and throbbing and a level 2.5/5. She states she has been nauseated no vomiting no vaginal discharge no vaginal bleeding she denies any urinary symptoms to include frequency urgency burning pain pain. States last menstrual cycle March 09 to the . This was her first cycle since her 1-year-old I have greeted and performed a rapid initial assessment of this patient. A comprehensive ED assessment and evaluation of the patient, analysis of test results and completion of medical decision making process will be conducted by an additional ED providers. TRAVEL OUTSIDE OF THE [place] IN LAST 30 DAYS: No - Related Data Allergies/Adverse Reactions: No Known Drug Allergies Allergy (Verified 03/22/19 10:35) Physical Exam - Vital signs Vitals: Temp Pulse Resp BP Pulse Ox 98.7 F 99 20 150/84 H 100 03/22/19 10:28 03/22/19 10:28 03/22/19 10:28 03/22/19 10:28 03/22/19 10:28 Course - Vital Signs Vital signs: Temp Pulse Resp BP Pulse Ox 98.7 F 99 20 150/84 H 100 03/22/19 10:28 03/22/19 10:28 03/22/19 10:28 03/22/19 10:28 03/22/19 10:28 Doctor's Discharge - Discharge Referrals: KARLIE ROGERS MD [Primary Care Provider] - Follow up as needed
[2019-03-22 11:36] LABS: APPEARANCE,URINE CLOUDY; BILIRUBIN,URINE NEGATIVE (NEGATIVE); COLOR,URINE YELLOW; GLUCOSE, URINE NEGATIVE (NEGATIVE); KETONES,URINE NEGATIVE (NEGATIVE); PROTEIN,URINE 100 mg/dL (NEGATIVE); UROBILINOGEN,URINE NEGATIVE mg/dL (<2.0)
[2019-03-22 11:49] LABS: ABSOLUTE BASOPHILS # (AUTO) 0.1 10^3/uL (0.0-0.2); ABSOLUTE EOSINOPHILS # (AUTO) 0.1 10^3/uL (0.0-0.6); ABSOLUTE LYMPHOCYTES (AUTO) 1.2 10^3/uL (0.5-4.7); ABSOLUTE MONOCYTES (AUTO) 0.4 10^3/uL (0.1-1.4); ABSOLUTE NEUT (AUTO) 10.3 10^3/uL (1.7-8.2); BASOPHILS % (AUTO) 0.5 % (0-2); EOSINOPHILS % (AUTO) 0.5 % (0-6); HEMATOCRIT 37.8 % (36.0-47.0); HEMOGLOBIN 12.8 g/dL (12.0-15.5); LYMPHOCYTES % (AUTO) 9.9 % (13-45); MEAN CORPUSCULAR HEMOGLOBIN 27.8 pg (27.0-33.4); MEAN CORPUSCULAR HGB CONC 33.9 g/dL (32.0-36.0); MEAN CORPUSCULAR VOLUME 82 fl (80-97); MONOCYTES % (AUTO) 3.4 % (3-13); PLATELET COUNT 363 10^3/uL (150-450); RED BLOOD COUNT 4.61 10^6/uL (3.72-5.28); RED CELL DISTRIBUTION WIDTH 13.1 % (11.5-14.0); SEGMENTED NEUTROPHILS % (AUTO) 85.7 % (42-78); TOTAL CELLS COUNTED % (AUTO) 100 %
[2019-03-22 12:10] LABS: ALBUMIN 4.5 g/dL (3.5-5.0); ALKALINE PHOSPHATASE 81 U/L (38-126); ANION GAP 9 (5-19); ASPARTATE AMINO TRANSFERASE 18 U/L (14-36); BILIRUBIN,DIRECT 0.1 mg/dL (0.0-0.4); BILIRUBIN,TOTAL 0.3 mg/dL (0.2-1.3); BLOOD UREA NITROGEN 12 mg/dL (7-20); CALCIUM 9.8 mg/dL (8.4-10.2); CARBON DIOXIDE 27 mmol/L (22-30); CHLORIDE 105 mmol/L (98-107); GLUCOSE 116 mg/dL (75-110); POTASSIUM 4.8 mmol/L (3.6-5.0); TOTAL PROTEIN 7.8 g/dL (6.3-8.2)
--- NOTE | 2019-03-22 13:34 | ER Document Report ---
ED General - General Chief Complaint: Abdominal Pain Stated Complaint: STOMACH PAIN Time Seen by Provider: 03/22/19 10:35 Primary Care Provider: KARLIE ROGERS MD [ACTIVE STAFF] - Follow up as needed Mode of Arrival: Ambulatory TRAVEL OUTSIDE OF THE [place] IN LAST 30 DAYS: No - HPI Notes: Patient is a 33-year-old female with no significant past medical history who presents complaining of having pain in her right lower pelvic area for a little bit this morning which has completely resolved. Patient states that she is otherwise eating and drinking without difficulty. She is urinating normally and having normal bowel movements. No vaginal discharge, odor, or bleeding. Patient does note that she is usually not symptomatic with urinary infections. Patient states that she is starting her ovulation on her ovulation cycle and utilizes that this schedule to try to prevent as well. Patient is denying being at this time otherwise. No surgical history to abdomen. Denies any headache, fever, URI, sore throat, chest pain, palpitations, syncope, cough, shortness of breath, wheeze, dyspnea, current abdominal pain, nausea/vomiting/diarrhea, urinary retention, dysuria, hematuria, or rash. - Related Data Allergies/Adverse Reactions: No Known Drug Allergies Allergy (Verified 03/22/19 10:35) Past Medical History - Social History Smoking Status: Never Smoker Chew tobacco use (# tins/day): No Frequency of alcohol use: None Drug Abuse: None Family History: Reviewed & Not Pertinent Patient has suicidal ideation: No Patient has homicidal ideation: No Past Surgical History: Reports: Hx Cholecystectomy Review of Systems - Review of Systems -: Yes All other systems reviewed and negative Physical Exam - Vital signs Vitals: Temp Pulse Resp BP Pulse Ox 98.7 F 99 20 150/84 H 100 03/22/19 10:28 03/22/19 10:28 03/22/19 10:28 03/22/19 10:28 03/22/19 10:28 - Notes Notes: PHYSICAL EXAMINATION: GENERAL: Well-appearing, well-nourished and in no acute distress. HEAD: Atraumatic, normocephalic. EYES: Pupils equal round and reactive to light, extraocular movements intact, sclera anicteric, conjunctiva are normal. ENT: Nares patent and without discharge. oropharynx clear without exudates. No tonsilar hypertrophy or erythema. Moist mucous membranes. NECK: Normal range of motion, supple without lymphadenopathy LUNGS: Breath sounds clear to auscultation bilaterally and equal. No wheezes rales or rhonchi. HEART: Regular rate and rhythm without murmurs, rubs, gallops. ABDOMEN: Soft, nontender, nondistended abdomen. No guarding, no rebound. Normal bowel sounds present. No CVA tenderness bilaterally. [place] neg. Muñoz neg. /Pelvic: pt declined Musculoskeletal: FROM to passive/active. Strength 5+/5. Extremities: No cyanosis, clubbing, or edema b/l. Peripheral pulses 2+. Capillary refill less than 3 seconds. NEUROLOGICAL: Normal speech, normal gait. PSYCH: Normal mood, normal affect. SKIN: Warm, Dry, normal turgor, no rashes or lesions noted. Course - Re-evaluation Re-evalutation: 03/22/19 13:34 Patient is an afebrile, well-hydrated, 33-year-old female who presents with an acute UTI. Vitals are acceptable without significant tachycardia, tachypnea, or hypoxia. PE is otherwise unremarkable. Patient's abdomen is soft nontender throughout. She is nontoxic-appearing and is tolerating p.o. without difficulty. See urinalysis. Urine culture is pending. Labs otherwise unremarkable. No further work-up warranted at this time. Patient is otherwise a symptomatic. Low suspicion/risk for acute appendicitis, bowel obstruction, acute cholecystitis, acute cholangitis, perforated diverticulitis, incarcerated hernia, pancreatitis, perforated ulcer, peritonitis, sepsis, pelvic inflammatory disease, ectopic , tubo-ovarian abscess, ovarian torsion, or other systemic emergent condition at this time. Patient is aware that her condition can change from initial presentation and she needs to monitor symptoms closely and seek medical attention if any acute changes. Rx for keflex. Conservative measures otherwise for symptoms. Recheck with your PCM in 2-3 days. Return to the ED with any worsening/concerning symptoms otherwise as reviewed in discharge. Patient is in agreement. - Vital Signs Vital signs: Temp Pulse Resp BP Pulse Ox 98.7 F 99 20 150/84 H 100 03/22/19 10:28 03/22/19 10:28 03/22/19 10:28 03/22/19 10:28 03/22/19 10:28 - Laboratory Result Diagrams: 03/22/19 11:08 03/22/19 11:08 Laboratory results interpreted by me: 03/22/19 03/22/19 03/22/19 10:52 11:08 11:08 WBC 12.0 H Lymph % (Auto) 9.9 L Absolute Neuts (auto) 10.3 H Seg Neutrophils % 85.7 H Glucose 116 H Urine Protein 100 H Urine Blood LARGE H Leukocyte Esterase Rfl LARGE H Discharge - Discharge Clinical Impression: Acute UTI (urinary tract infection) Condition: Stable Disposition: HOME, SELF-CARE Instructions: Cephalexin ([facility]), Urinary Tract Infection ([facility]) Additional Instructions: Push fluids (i.e. water, cranberry juice) Proper hygenic technique Keep the skin clean Tylenol/ibuprofen as needed Take medications as directed F/u with your PCM in 3-5 days for a recheck Consider consult with a Urologist for ongoing/worsening symptoms. Return to the ED with any worsening symptoms and/or development of fever, headache, chest pain, palpitations, syncope, shortness of breath, trouble breathing, abdominal pain, n/v/d, blood in stool/urine, loss of control of bowel/bladder, urinary retention, or other worsening symptoms that are concerning to you. Prescriptions: Cephalexin Monohydrate [Keflex 500 mg Capsule] 500 mg PO TID #21 capsule Forms: Elevated Blood Pressure Referrals: KARLIE ROGERS MD [ACTIVE STAFF] - Follow up as needed [facility] [Provider Group] - Follow up as needed
[2019-03-22 13:45] VITALS: BP 131/78
== END 2019-03-22 13:44 | disposition home or self-care (01) ==
LOC: ER 10:21
DX: N39.0 Urinary tract infection, site not specified (principal); R10.84 Generalized abdominal pain; R10.2 Pelvic and perineal pain; Z90.49 Acquired absence of other specified parts of digestive tract
CPT/HCPCS: 36415; 80053; 81001; 84702; 85025; 87086; 87088; 87186

== ENCOUNTER 2020-05-06 10:46 | Observation (INO) | payer BC ==
[2020-05-06] MEDS ORDERED: HYDROCODONE/ACETAMINOPHEN 5-325 MG TABLET PO PRN (11:42)
[2020-05-06] MEDS ORDERED: MISOPROSTOL 0.2 MG TABLET ONE (11:49)
[2020-05-06] MEDS ORDERED: IBUPROFEN 800 MG TABLET ONE (11:50)
[2020-05-06] MEDS: MISOPROSTOL 0.2 MG TABLET PV SCH ×2 (11:50→15:27)
--- NOTE | 2020-05-06 11:59 | PDOC H&P ---
General Chief Complaint: missed ab - Diagnosis (1) Missed ab Is this a Current Diagnosis?: Yes - Current Medications/Allergies Home Medications: Pnv,Calcium 72/Iron/Folic Acid [Pnv Plus Multivit Tab] 1 tab PO DAILY 09/29/16 Metformin HCl 500 mg PO DAILY 03/21/18 Allergies/Adverse Reactions: No Known Drug Allergies Allergy (Verified 03/22/19 10:35) Past Surgical History Past Surgical History: Reports: None, Cholecystectomy Family History Family History: None, Reviewed & Not Pertinent Parental Family History Reviewed: Yes Children Family History Reviewed: NA Sibling(s) Family History Reviewed.: NA Social History Information Source: Patient Smoking Status: Never Smoker Electronic Cigarette use?: No Frequency of Alcohol Use: None Hx Recreational Drug Use: No - Advance Directive Resuscitation Status: Full Code Physical Exam Vital Signs: Temp Pulse Resp BP Pulse Ox 98.2 F 96 18 146/86 H 100 05/06/20 11:17 05/06/20 11:17 05/06/20 11:17 05/06/20 11:17 05/06/20 11:17 General appearance: PRESENT: no acute distress Respiratory exam: PRESENT: clear to auscultation gil Cardiovascular exam: PRESENT: RRR Impression/Plan Impression: missed ab plan dytotec per protocol
[2020-05-06 12:44] LABS: ABSOLUTE EOSINOPHILS # (AUTO) 0.1 10^3/uL (0.0-0.6); ABSOLUTE LYMPHOCYTES (AUTO) 1.5 10^3/uL (0.5-4.7); ABSOLUTE MONOCYTES (AUTO) 0.3 10^3/uL (0.1-1.4); ABSOLUTE NEUT (AUTO) 6.1 10^3/uL (1.7-8.2); BASOPHILS % (AUTO) 0.5 % (0-2); EOSINOPHILS % (AUTO) 0.8 % (0-6); HEMATOCRIT 34.5 % (36.0-47.0); LYMPHOCYTES % (AUTO) 19.3 % (13-45); MEAN CORPUSCULAR HEMOGLOBIN 29.1 pg (27.0-33.4); MEAN CORPUSCULAR HGB CONC 34.7 g/dL (32.0-36.0); MEAN CORPUSCULAR VOLUME 84 fl (80-97); MONOCYTES % (AUTO) 3.3 % (3-13); PLATELET COUNT 326 10^3/uL (150-450); RED BLOOD COUNT 4.11 10^6/uL (3.72-5.28); RED CELL DISTRIBUTION WIDTH 13.2 % (11.5-14.0); SEGMENTED NEUTROPHILS % (AUTO) 76.1 % (42-78); TOTAL CELLS COUNTED % (AUTO) 100 %
[2020-05-06 12:48] LABS: INTERNATIONAL RATION (INR) 0.97; PROTHROMBIN TIME 13.1 SEC (11.4-15.4)
[2020-05-06 12:49] LABS: PARTIAL THROMBOPLASTIN TIME 31.3 SEC (23.5-35.8)
[2020-05-06] MEDS ORDERED: MISOPROSTOL 0.2 MG TABLET PV SCH (14:00)
[2020-05-06] MEDS ORDERED: IBUPROFEN 800 MG TABLET PO SCH (14:00)
[2020-05-06 15:26] VITALS: BP 145/75
--- NOTE | 2020-05-06 17:00 | PDOC PROGRESS REPORT ---
Subjective Date:: 05/06/20 Subjective:: RN called me to evaluate. Baby, cord and placenta expelled intact en caul. No vaginal bleeding noted. Pt is appropriately tearful. Reason For Visit: MISSED AB Physical Exam - Physical Exam Vital Signs: Temp Pulse Resp BP Pulse Ox 98.9 F 104 H 16 145/75 H 100 05/06/20 15:25 05/06/20 15:25 05/06/20 15:25 05/06/20 15:25 05/06/20 15:25 - Obstetrical Exam External Genitalia: normal Vagina: normal Fundal Height: 3/u - 4/u Result Laboratory Results: 05/06/20 12:13 05/06/20 12:13 WBC 8.0 RBC 4.11 Hgb 12.0 Hct 34.5 L MCV 84 MCH 29.1 MCHC 34.7 RDW 13.2 Plt Count 326 Seg Neutrophils % 76.1 Assessment & Plan - Diagnosis (1) Missed ab Is this a current diagnosis for this admission?: Yes (2) demise before 20 weeks with retention of fetus Is this a current diagnosis for this admission?: Yes (3) Delivery normal Is this a current diagnosis for this admission?: Yes - Time Time Spent with patient: Less than 15 minutes Medications reviewed and adjusted accordingly: Yes Anticipated discharge: Home Anticipated DC Timeframe: within 24 hours - Plan Summary Plan Summary: will DC home sometime this pm if bleeding is stable. Report to Dr. Prabhakar.
--- NOTE | 2020-05-06 17:14 | PDOC DISCHARGE SUMMARY ---
Impression - Admit/DC Date/PCP Admission Date/Primary Care Provider: 05/06/20 13:45 MADELINE ABEBE PA-C Discharge Date: 05/06/20 - Discharge Diagnosis (1) Missed ab Is this a current diagnosis for this admission?: Yes (2) demise before 20 weeks with retention of fetus Is this a current diagnosis for this admission?: Yes (3) Delivery normal Is this a current diagnosis for this admission?: Yes - Additional Information Resuscitation Status: Full Code Discharge Diet: Regular Discharge Activity: Pelvic Rest Referrals: MADELINE ABEBE PA-C [Primary Care Provider] - Prescriptions: Ibuprofen [Motrin 800 mg Tablet] 800 mg PO Q8HP PRN #60 tablet PRN Reason: Home Medications: Pnv,Calcium 72/Iron/Folic Acid [Pnv Plus Multivit Tab] 1 tab PO DAILY 09/29/16 Metformin HCl 500 mg PO DAILY 03/21/18 Cephalexin Monohydrate [Keflex 500 mg Capsule] 500 mg PO TID #21 capsule 03/22/19 Ibuprofen [Motrin 800 mg Tablet] 800 mg PO Q8HP PRN #60 tablet 05/06/20 History of Present Illiness History of Present Illness: MIGUEL A DAN is a 34 year old female scheduled for today for induction d/t demise noted in office yesterday by canelo. LEEANNA @demise 14wks. She is with hx of normal vag deliveries at term. Mat 21 testing negative, male fetus. Physical Exam - Physical Exam Vital Signs: Temp Pulse Resp BP Pulse Ox 98.9 F 104 H 16 145/75 H 100 05/06/20 15:25 05/06/20 15:25 05/06/20 15:25 05/06/20 15:25 05/06/20 15:25 General appearance: PRESENT: no acute distress - Obstetrical Exam External Genitalia: normal Vagina: normal Fundal Height: 3/u - 4/u Results Laboratory Results: WBC 8.0 10^3/uL (4.0-10.5) 05/06/20 12:13 RBC 4.11 10^6/uL (3.72-5.28) 05/06/20 12:13 Hgb 12.0 g/dL (12.0-15.5) 05/06/20 12:13 Hct 34.5 % (36.0-47.0) L 05/06/20 12:13 MCV 84 fl (80-97) 05/06/20 12:13 MCH 29.1 pg (27.0-33.4) 05/06/20 12:13 MCHC 34.7 g/dL (32.0-36.0) 05/06/20 12:13 RDW 13.2 % (11.5-14.0) 05/06/20 12:13 Plt Count 326 10^3/uL (150-450) 05/06/20 12:13 Lymph % (Auto) 19.3 % (13-45) 05/06/20 12:13 Mcdonough % (Auto) 3.3 % (3-13) 05/06/20 12:13 Eos % (Auto) 0.8 % (0-6) 05/06/20 12:13 Baso % (Auto) 0.5 % (0-2) 05/06/20 12:13 Absolute Neuts (auto) 6.1 10^3/uL (1.7-8.2) 05/06/20 12:13 Absolute Lymphs (auto) 1.5 10^3/uL (0.5-4.7) 05/06/20 12:13 Absolute Monos (auto) 0.3 10^3/uL (0.1-1.4) 05/06/20 12:13 Absolute Eos (auto) 0.1 10^3/uL (0.0-0.6) 05/06/20 12:13 Absolute Basos (auto) 0.0 10^3/uL (0.0-0.2) 05/06/20 12:13 Seg Neutrophils % 76.1 % (42-78) 05/06/20 12:13 PT 13.1 SEC (11.4-15.4) 05/06/20 12:13 INR 0.97 05/06/20 12:13 APTT 31.3 SEC (23.5-35.8) 05/06/20 12:13 Plan Plan of Treatment: f/u at [facility] next week Stroke Is this a Stroke Patient?: No Acute Heart Failure Is this a Heart Failure Patient?: No
== END 2020-05-06 18:40 | disposition home or self-care (01) ==
LOC: 2N 10:46 → OBSVTOIN 13:45 → INTOOBSV 13:45
PROVIDERS: ADMIT Obstetrics & Gynecology Gynecology; ATTEND Obstetrics & Gynecology Gynecology
DX: O02.1 Missed abortion (principal); Z79.84 Long term (current) use of oral hypoglycemic drugs; Z90.49 Acquired absence of other specified parts of digestive tract; Z83.3 Family history of diabetes mellitus
CPT/HCPCS: 36415; 85025; 85610; 85730

== ENCOUNTER 2020-05-15 18:32 | Emergency (ER) | payer BC ==
[2020-05-15 18:55] VITALS: BP 147/80
[2020-05-15] MEDS ORDERED: IBUPROFEN 800 MG TABLET PO ONE (19:53)
--- NOTE | 2020-05-15 19:57 | ER Document Report ---
ED Extremity Problem, Lower - General Chief Complaint: Fall Injury Stated Complaint: FALL/RIGHT ANKLE PAIN ,SWELLING Time Seen by Provider: 05/15/20 19:41 Primary Care Provider: MADELINE ABEBE PA-C [Primary Care Provider] - Follow up as needed Mode of Arrival: Wheelchair Information source: Patient Notes: 4-year-old female presents to ED for complaint of pain to the lateral aspect of the left ankle. She states she was walking across the grass and must of been uneven and she twisted her ankle. She states she has had pain to the lateral aspect of the left ankle since then. She is alert oriented respirations regular nonlabored speaking in full sentences. Constitutional: Negative for fever. HENT: Negative for sore throat. Eyes: Negative for visual changes. Cardiovascular: Negative for chest pain. Respiratory: Negative for shortness of breath. Gastrointestinal: Negative for abdominal pain, vomiting or diarrhea. Genitourinary: Negative for dysuria. Musculoskeletal: Swelling and bruising to the left lateral ankle after stepping on uneven ground Skin: Negative for rash. Neurological: Negative for headaches, weakness or numbness. 10 point ROS negative except as marked above and in HPI. PHYSICAL EXAMINATION: GENERAL: Well-appearing, well-nourished and in no acute distress. HEAD: Atraumatic, normocephalic. EYES: Pupils equal round extraocular movements intact, conjunctiva are normal. ENT: Nares patent NECK: Normal range of motion LUNGS: No respiratory distress Musculoskeletal: Normal range of motion but with pain to the left lateral ankle NEUROLOGICAL: Normal speech, normal gait. PSYCH: Normal mood, normal affect. SKIN: Bruising and swelling to the left lateral ankle TRAVEL OUTSIDE OF THE [place] IN LAST 30 DAYS: No - HPI Patient complains to provider of: Injury, Pain, Swelling Location: Ankle Occurred: Just prior to arrival Where: Home, Outdoors Quality of pain: Throbbing Severity: Moderate Pain Level: 3 Context: Twisted, Wearing shoes Recent injury: Yes Associated symptoms: Painful ambulation Exacerbated by: Hanging down, Movement, Walking Relieved by: Nothing - Related Data Allergies/Adverse Reactions: No Known Drug Allergies Allergy (Verified 03/22/19 10:35) Past Medical History - General Information source: Patient - Social History Smoking Status: Never Smoker Frequency of alcohol use: None Drug Abuse: None Lives with: Family Family History: None, Reviewed & Not Pertinent Patient has suicidal ideation: No Patient has homicidal ideation: No - Past Medical History Cardiac Medical History: Reports: None Pulmonary Medical History: Reports: None EENT Medical History: Reports: None Neurological Medical History: Reports: None Endocrine Medical History: Reports: None Renal/ Medical History: Reports: None Malignancy Medical History: Reports: None GI Medical History: Reports: None Musculoskeletal Medical History: Reports Hx Musculoskeletal Trauma Skin Medical History: Reports None Psychiatric Medical History: Reports: None Traumatic Medical History: Reports: Hx Fractures - Left knee Infectious Medical History: Reports: None Past Surgical History: Reports: Hx Cholecystectomy, Hx Orthopedic Surgery - Left knee - Immunizations Immunizations up to date: Yes Physical Exam - Vital signs Vitals: Temp Pulse Resp BP Pulse Ox 98.7 F 88 16 147/80 H 100 05/15/20 18:52 05/15/20 18:52 05/15/20 18:52 05/15/20 18:52 05/15/20 18:52 Course - Re-evaluation Re-evalutation: 05/15/20 21:28 Discussed x-ray with patient and written report of x-ray given to patient. The patient is nontoxic appearing with stable vitals. They are afebrile. Ankle exam shows no deformities with no obvious ligament instability. There is a normal pulse and sensation distally. There is no redness or signs of infection. X-rays show no acute fracture per the radiologist. Patient will be placed in an Mario Alberto wrap for comfort. Crutches will be offered and given if requested. Patient will be instructed to follow-up with not better in 1 week, sooner for increasing pain, fever, redness, numbness, tingling, weakness, any further concerns. Patient will be instructed to rest, ice, elevate their ankle. - Vital Signs Vital signs: Temp Pulse Resp BP Pulse Ox 98.7 F 88 16 147/80 H 100 05/15/20 18:52 05/15/20 18:52 05/15/20 18:52 05/15/20 18:52 05/15/20 18:52 - Laboratory Results Critical Laboratory Results Reviewed: No Critical Results - Radiology Results Critical Radiology Results Reviewed: No Critical Results Procedures - Immobilization Right Ankle Time completed: 21:39 Pre-Proc Neuro Vasc Exam: Normal Immobilizer type: Mario Alberto wrap, Ankle stirrup, Crutches Performed by: Provider assisted, JACK Post-Proc Neuro Vasc Exam: Normal Alignment checked and good: Yes Discharge - Discharge Clinical Impression: Right ankle sprain Qualifiers: Encounter type: initial encounter Involved ligament of ankle: unspecified ligament Qualified Code(s): S93.401A - Sprain of unspecified ligament of right ankle, initial encounter Condition: Stable Disposition: HOME, SELF-CARE Additional Instructions: SPRAINED ANKLE: Your sprained ankle results from stretching or tearing of the ligaments which support the ankle. This usually results from twisting the foot inward and under. The ligaments will require time and protection in order to heal properly. Many ankle sprains are quite disabling, and should be taken seriously. The usual treatment for an ankle sprain is cold packs; protection with tape, splints, or wraps; elevation; and staying off the ankle for at least a day. As the ankle improves, you can walk IF it's not painful to bear weight. Sports are best postponed until healing is complete. More serious sprains usually require strengthening exercises after early healing. Your physician has assessed the seriousness of the ligament injury to your ankle. However, the treatment may change, depending on how your ankle progresses. If further exams were recommended, it is important that you follow through. Call the doctor if your foot becomes numb, painful, or severely swollen. MARIO ALBERTO WRAP: A compression dressing (mario alberto wrap) has been placed. This helps hold the area still. It limits swelling and internal bleeding. The wrap should be comfortably snug -- not tight. You should feel a sense of pressure, but not severe pain under the wrap. Unless the physician tells you otherwise, you can adjust the wrap for comfort. If the wrap causes symptoms suggesting it's too tight -- uncomfortable pressure, swelling or discoloration beyond the wrap, numbness, or severe pain -- you must loosen the wrap. If these symptoms don't resolve promptly, return for re-evaluation. ANKLE STIRRUP SPLINT: You are to use an ankle brace called a stirrup splint. This type of brace allows you to place greater stresses on the ankle without risk of re-injury, and is often used for more severe ankle injuries such as avulsion fractures and ligament ruptures. The splint can be worn over a sock or tape. For proper support, wear the s plint with a shoe over it. It's important that the splint fit properly. Adjust the heel tension, if needed. If your splint has air bladders, peel back the bottom of each air bladder, then move the Velcro attachment of the heel strap up or down. Air bladder pressure can be adjusted by pulling up the valve at the top, threading the air tube down into the main bladder, then blowing air into the bladder or squeezing it out. The two sides of the stirrup can be moved forward or back on your ankle by changing the attachment of the main straps. If you are unable to use the ankle comfortably in the splint, return for re-evaluation. SOFT ANKLE SPLINT: You are to wear a cloth ankle splint. This type of splint uses the strength of the fabric to keep the ankle from twisting. The splint can be worn over a sock, if it's more comfortable. If the splint has an adjustable strap, the strap should come up over the OUTER side of the ankle. This strap should be pulled tight enough so you can't turn your ankle in towards you -- it should hold your foot so the sole can't be turned towards at the other foot. You should start out slow. Like a new shoe, the splint may take some "breaking in." You will get blisters if you are too active at first. No ankle brace provides absolute protection. You must avoid activities which put your ankle at risk. Work on strengthening your ankle -- strength is your best protection against re-injury. Call the doctor if you can't do your normal activities in the ankle brace. SPRAINED KNEE: Your sprained knee results from a stretching or tearing of the ligaments which support the joint. This often results from a bending stress -- such as a twisting fall while skiing or a "clip" while playing football. The ligaments will require time and protection to heal adequately. A knee sprain can be quite serious, and should be taken seriously. The usual treatment is splinting of the knee, ice packs, and elevation. You shouldn't walk on the leg if weightbearing is painful. Unless the sprain is obviously a minor one, follow-up exam is very important. The degree of ligament damage often cannot be fully assessed at first due to muscle spasm and pain. Your treatment plan may change based on the physician's findings during your follow-up examination. Call the doctor at once if there is severe swelling, increasing pain, numbness, or other alarming symptoms. SUSPECTED INTERNAL KNEE INJURY: The examiner of your injured knee suspects an internal injury to the cartilage or internal ligaments. This must be further investigated by an record retrieval specialist. The knee should be protected, ice packed, and elevated while awaiting your follow-up exam by the orthopedist. If there is severe swelling, severe pain, or any new symptoms while awaiting your exam, you should call the orthopedist. (If he/she is unavailable, call us or return for re-examination.) KNEE IMMOBILIZING SPLINT: The knee immobilizing splint will protect the injury while healing begins. This type of splint does not allow the knee to bend at all. No running or sports will be possible. If the splint allows painfree walking, it's giving adequate protection. If there is still significant pain, crutches may be needed as well. Don't do anything that hurts. Adjusted the splint, if necessary. The stiffeners on the sides are attached with Velcro, so they can be easily moved to adjust for thigh and calf size. If you need help with these adjustments, come back. You will lose muscle strength in the thigh while using this splint. The doctor will advise you if it's safe to do isometric knee exercises while you use it. USE OF CRUTCHES: The doctor has recommended that you not bear weight at this time. You will need to use crutches. Adjust the crutches so the tops come to about two inches under the armpit while you are standing upright. Use your hands -- not your armpits -- to support your weight. To get into a chair, support yourself with one crutch on the injured side. Hold the chair with the other hand, then lower yourself while putting all your weight on the good leg. Going up stairs is `good leg up, step up, then bring up crutches and bad leg.' Down stairs is `bad leg and crutches down, then bring good leg down.' If you develop numbness or swelling in an arm or hand, you are using the crutches incorrectly. Return if you are having any problems with the crutches. ICE & ELEVATION: Apply ice packs frequently against the painful area. Many different schedules are recommended, such as "20 minutes on, 20 minutes off" or "one hour ice, two hours rest." If you need to work, you may need to go longer between ice treatments. You should plan to have the area ice packed AT LEAST one-fourth of the time. The ice should be applied over the wrap, tape, or splint, or over a layer of cloth -- not directly against the skin. Some ice bags have a built-in cloth and can be put directly on the skin. Your injured part should be elevated as much as possible over the next 48 hours. Try to keep the injury above the level of the heart. Avoid use of the injured area. Elevation and rest will decrease the swelling. USE OF [id number] IBUPROFEN: Ibuprofen (Advil, Nuprin, Medipren, Motrin IB) is a medication for fever and pain control. In addition, it has anti- inflammatory effects which may be beneficial, especially in the treatment of injuries. It's best to take ibuprofen with food. Persons with ulcer disease or a llergy to aspirin should notify their physician of this before taking ibuprofen. Ibuprofen can be given every four to six hours, for a total of four doses daily. Age Pain or fever dose Antiinflammatory dose 6-8 yr 200 mg (1 tab) 200 mg (1 tab) 9-11 yr 200 mg (1 tab) 200-400 mg (1-2 tab) 11-14 yr 200-400 mg (1-2 tab) 400 mg (2 tab) 15-adult 400 mg (2 tab) 600 mg (3 tab) ORAL NARCOTIC MEDICATION: You have been given a prescription for pain control. This medication is a narcotic. It's best taken with food, as nausea can result if taken on an empty stomach. Don't operate machinery or drive within six hours of taking this medicatio n. Do not combine this medicine with alcohol, or with any medication which can cause sedation (such as cold tablets or sleeping pills) unless you get permission from the physician. Narcotics tend to cause constipation. If possible, drink plenty of fluids and eat a diet high in fiber and fruits. Please be aware that prescription narcotics also have the potential for abuse. People become addicted to these medications because of the general sense of wellbeing that they induce. This feeling along with a significant reduction in tension, anxiety, and aggression provides a stimulating seductive quality to these drugs. Once your pain is under control, we encourage you to discard your unused narcotics. FOLLOW-UP CARE: If you have been referred to a physician for follow-up care, call the physicians office for an appointment as you were instructed or within the next two days. If you experience worsening or a significant change in your symptoms, notify the physician immediately or return to the Emergency Department at any time for re-evaluation. Forms: Elevated Blood Pressure Referrals: MADELINE ABEBE PA-C [Primary Care Provider] - Follow up as needed JOSEPH GREENBERG JR, DO [ACTIVE PROVISIONAL STAFF] - Follow up as needed
--- NOTE | 2020-05-15 20:54 | RADIOLOGY REPORT (SQ) ---
EXAM DESCRIPTION: ANKLE RIGHT COMPLETE, three views CLINICAL HISTORY: 34 years Female, Injury and swelling COMPARISON: None. FINDINGS: Diffuse soft tissue swelling is identified. This is most pronounced at the lateral aspect of the ankle. Bone mineralization is normal. Alignment is anatomic. No fracture is seen. Ankle mortise is intact. No erosions or periostitis. There is mild traction osteophyte formation of the calcaneus at the insertion of the plantar fascia. IMPRESSION: Soft tissue swelling. No fracture.
== END 2020-05-15 21:37 | disposition home or self-care (01) ==
LOC: ER 18:32
DX: S93.401A Sprain of unspecified ligament of right ankle, initial encounter (principal); X50.0XXA Overexertion from strenuous movement or load, initial encounter
CPT/HCPCS: 99284